=== PATIENT | male | born 1985 | race Caucasian/White ===

== ENCOUNTER 2021-01-22 21:58 | Emergency (ER) | payer SELFPAY ==
[2021-01-22] MEDS ORDERED: Ondansetron 4 MG/2 ML SDV IVPUSH ONE (22:50)
[2021-01-22] MEDS ORDERED: Dextrose 5%-0.9% NaCl 1,000 ML IV SCH (23:15)
[2021-01-22 23:30] LABS: BLOOD UREA NITROGEN,BUN 26 mg/dL (7.0-18.0); CARBON DIOXIDE,CO2 26.4 mmol/L (21.0-32.0); CHLORIDE,CL 99 mmol/L (98-107); GLUCOSE RANDOM 113 mg/dL (74-106); POTASSIUM,K 4.4 mmol/L (3.5-5.1); SODIUM,NA 136 mmol/L (136-148)
[2021-01-22 23:46] LABS: CORONAVIRUS COVID-19 NAA NEGATIVE (NEGATIVE); INFLUENZA A NAA NEGATIVE (NEGATIVE); INFLUENZA B NAA NEGATIVE (NEGATIVE)
--- NOTE | 2021-01-23 00:22 | EDM.PDOC ---
ED HPI GENERAL MEDICAL PROBLEM - General Chief Complaint: Gastrointestinal Problem Stated Complaint: VOMITING, DIARREA Time Seen by Provider: 01/22/21 22:16 - History of Present Illness INITIAL COMMENTS - FREE TEXT/NARRATIVE: CHIEF COMPLAINT(S): Vomiting HISTORY OF PRESENT ILLNESS: This is a 35 year old man without a PMH presenting to the ED with vomiting. The patient states that he has been experiencing non blood non bilious vomiting for the last day. He has some also associated diarrhea which is non bloody. He states that he is having some associated cold and hot flashes and bodyaches. The patient states that he is experiencing lower abdomen pain that began 1 days ago. He states the pain is located in the lower abdomen but is all over his abdomen at times and describes the pain as sharp. He states that there is no radiation and is constant 8/10. He states that the pain is not relieved by anything and the pain is exacerbated by bowel movements and vomiting. he states that his girlfriend is having similar symptoms. He denies any chest pain, shortness of breath, headache, loss of taste or vision. REVIEW OF SYSTEMS: Constitutional: Positive for hot/cold flashes body aches Eyes: Denies eye pain Ears, Nose, Mouth, & Throat: Denies earache Cardiovascular: Denies chest pain Respiratory: Denies shortness of breath Gastrointestinal: Positive for abdominal pain, nausea, vomiting, and diarrhea. Denies hematemesis, bilious emesis, hematochezia, or melena. Genitourinary: Denies hematuria, dysuria Skin:Denies a rash MSK: Denies joint pain Neurological: Denies blurred vision Psychiatric: Denies depression PAST MEDICAL HISTORY: As per history of present illness and as reviewed below otherwise noncontributory. SURGICAL HISTORY: As per history of present illness and as reviewed below otherw ise noncontributory. SOCIAL HISTORY: As per history of present illness and as reviewed below otherwise noncontributory. FAMILY HISTORY: As per history of present illness and as reviewed below otherw ise noncontributory. EXAMINATION OF ORGAN SYSTEMS/BODY AREAS: Constitutional: BP 129/74, HR 111, RR 18 with an oxygen saturation of 94% on RA. T 37.9 General: Well appearing man in NAD Psychiatric: Appropriate mood and affect. Eyes: No scleral icterus or conjunctival erythema ENMT: Pasty mucous membranes. No pharyngeal erythema Cardiovascular: Regular, rate, and rhythm. No gallops, murmurs, or rubs. Bilateral upper extremity pulses symmetric and intact. No peripheral edema. No JVD. Respiratory: Lungs clear to auscultation bilaterally. No wheezes, rales, or rhonchi. Gastrointestinal: Soft, tenderness throughout abdomen but worse in lower quadrats, non-distended. Normoactive bowel sounds Genitourinary: Tenderness to suprapubic palpation. No CVA tenderness Musculoskeletal: Normal range of motion. Skin: No lesions or abrasions. Neurological: Alert, GCS 15 MEDICAL DECISION MAKING AND COURSE IN THE ED WITH INTERPRETATION/REVIEW OF DIAGNOSTIC STUDIES: This is a 25 year old man without any PMH who presents with nonspecific abdominal pain associated with nausea, vomiting, and diarrhea. The patient has some tachycardia and borderline hypoxia. These symptoms are not consistent with covid however will obtain COVID swab. At this time the patient has no antibiotic use therefore C dif is not a consideration. Given that his girfriend has similar symptoms this is likely gastroenteritis. We obtain labs to evaluate for electrolyte abnormalities. Will give patient 1L D5 LR bolus and zofran and reevaluate for PO toleration. Laboratory: CBC reveals a leukocytosis of 12.46 with neutrophilic predominance without any left shift. CMP reveals elevated BUN at 26, hyperglycemia at 113 otherwise unremarkable. Covid and influenza are negative. On reevaluation the patient was always able to tolerate p.o. At this time I did discuss with him that I do believe this is secondary to viral gastroenteritis. He is to continue with p.o. hydration. I encouraged the patient to use Zofran as needed for nausea in order to tolerate p.o. He is to return for any new or worsening symptoms. He was amenable to discharge at this time and had no further questions. DISPOSITION: The patient was discharged home in stable condition. The patient will follow up with primary care physician within 1 week CONDITION: Fair PROCEDURES: None FINAL IMPRESSION(S)/DIAGNOSES: 1. Acute vomiting and diarrhea likely secondary to gastroenteritis Emiliano Banks M.D.. Generalized Pain Score (Numeric/FACES): 8 - Related Data Allergies Allergy/AdvReac Type Severity Reaction Status Date / Time amoxicillin Allergy Diarrhea Verified 01/22/21 22:46 Home Meds: Home Meds Ondansetron [Zofran ODT] 4 mg PO Q6H PRN #10 tab.dis 01/23/21 [Rx] Past Medical History Other Respiratory History: collapsed lung with chest tube Other Musculoskeletal History: broken L femur and ankle - Infectious Disease History Infectious Disease History: Reports: Chicken Pox Social & Family History - Family History Family Medical History: No Pertinent Family History - Caffeine Use Caffeine Use: Reports: Coffee, Energy Drinks, Soda, Tea - Recreational Drug Use Recreational Drug Use: No ED ROS GENERAL - Review of Systems Review Of Systems: See Below ED EXAM, GENERAL - Physical Exam Exam: See Below Course - Vital Signs Last Recorded V/S: Last Vital Signs Temp 36.8 C 01/23/21 00:43 Pulse 93 01/23/21 00:43 Resp 18 01/23/21 00:43 BP 119/58 L 01/23/21 00:43 Pulse Ox 94 L 01/23/21 00:43 - Orders/Labs/Meds Labs: Laboratory Tests 01/22/21 01/22/21 01/22/21 Range/Units 22:57 22:57 22:58 WBC 12.46 H (4.0-11.0) K/uL RBC 5.35 (4.50-5.90) M/uL Hgb 16.2 (13.0-17.0) g/dL Hct 46.7 (38.0-50.0) % MCV 87.3 (80.0-98.0) fL MCH 30.3 (27.0-32.0) pg MCHC 34.7 (31.0-37.0) g/dL RDW Std Deviation 41.8 (28.0-62.0) fl RDW Coeff of Sarah 13 (11.0-15.0) % Plt Count 251 (150-400) K/uL MPV 10.30 (7.40-12.00) fL Neut % (Auto) 90.0 H (48.0-80.0) % Lymph % (Auto) 4.2 L (16.0-40.0) % Kleberg % (Auto) 5.0 (0.0-15.0) % Eos % (Auto) 0.6 (0.0-7.0) % Baso % (Auto) 0.2 (0.0-1.5) % Neut # (Auto) 11.2 H (1.4-5.7) K/uL Lymph # (Auto) 0.5 L (0.6-2.4) K/uL Kleberg # (Auto) 0.6 (0.0-0.8) K/uL Eos # (Auto) 0.1 (0.0-0.7) K/uL Baso # (Auto) 0.0 (0.0-0.1) K/uL Nucleated RBC % 0.0 /100WBC Nucleated RBCs # 0 K/uL Sodium 136 (136-148) mmol/L Potassium 4.4 (3.5-5.1) mmol/L Chloride 99 (98-107) mmol/L Carbon Dioxide 26.4 (21.0-32.0) mmol/L BUN 26 H (7.0-18.0) mg/dL Creatinine 1.2 (0.8-1.3) mg/dL Est Cr Clr Drug Dosing 87.03 mL/min Estimated GFR (MDRD) > 60.0 ml/min Glucose 113 H (74-106) mg/dL POC Glucose 114 H (60-110) mg/dL Calcium 9.4 (8.5-10.1) mg/dL Total Bilirubin 0.7 (0.2-1.0) mg/dL AST 27 (15-37) IU/L ALT 62 (14-63) IU/L Alkaline Phosphatase 61 (46-116) U/L Total Protein 8.5 H (6.4-8.2) g/dL Albumin 4.7 (3.4-5.0) g/dL Globulin 3.8 (2.6-4.0) g/dL Albumin/Globulin Ratio 1.2 (0.9-1.6) Influenza Type A RNA (NEGATIVE) Influenza Type B RNA (NEGATIVE) SARS-CoV-2 RNA (CRISTOBAL) (NEGATIVE) 01/22/21 Range/Units 23:01 WBC (4.0-11.0) K/uL RBC (4.50-5.90) M/uL Hgb (13.0-17.0) g/dL Hct (38.0-50.0) % MCV (80.0-98.0) fL MCH (27.0-32.0) pg MCHC (31.0-37.0) g/dL RDW Std Deviation (28.0-62.0) fl RDW Coeff of Sarah (11.0-15.0) % Plt Count (150-400) K/uL MPV (7.40-12.00) fL Neut % (Auto) (48.0-80.0) % Lymph % (Auto) (16.0-40.0) % Kleberg % (Auto) (0.0-15.0) % Eos % (Auto) (0.0-7.0) % Baso % (Auto) (0.0-1.5) % Neut # (Auto) (1.4-5.7) K/uL Lymph # (Auto) (0.6-2.4) K/uL Kleberg # (Auto) (0.0-0.8) K/uL Eos # (Auto) (0.0-0.7) K/uL Baso # (Auto) (0.0-0.1) K/uL Nucleated RBC % /100WBC Nucleated RBCs # K/uL Sodium (136-148) mmol/L Potassium (3.5-5.1) mmol/L Chloride (98-107) mmol/L Carbon Dioxide (21.0-32.0) mmol/L BUN (7.0-18.0) mg/dL Creatinine (0.8-1.3) mg/dL Est Cr Clr Drug Dosing mL/min Estimated GFR (MDRD) ml/min Glucose (74-106) mg/dL POC Glucose (60-110) mg/dL Calcium (8.5-10.1) mg/dL Total Bilirubin (0.2-1.0) mg/dL AST (15-37) IU/L ALT (14-63) IU/L Alkaline Phosphatase (46-116) U/L Total Protein (6.4-8.2) g/dL Albumin (3.4-5.0) g/dL Globulin (2.6-4.0) g/dL Albumin/Globulin Ratio (0.9-1.6) Influenza Type A RNA NEGATIVE (NEGATIVE) Influenza Type B RNA NEGATIVE (NEGATIVE) SARS-CoV-2 RNA (CRISTOBAL) NEGATIVE (NEGATIVE) Meds: Medications Discontinued Medications Generic Name Dose Route Start Last Admin Trade Name Freq PRN Reason Stop Dose Admin Dextrose/Sodium Chloride 1,000 mls @ 999 mls/hr 01/22/21 23:15 01/22/21 23:23 Dextrose 5%-Normal Saline IV 999 mls/hr ASDIRECTED MARSHALL Administration Ondansetron HCl 4 mg 01/22/21 22:50 01/22/21 23:00 Ondansetron 4 Mg/2 Ml Sdv IVPUSH 01/22/21 22:51 4 mg ONETIME ONE Administration Ondansetron HCl 4 mg 01/23/21 00:23 01/23/21 00:40 Ondansetron 4 Mg Tab.Dis PO 01/23/21 00:24 4 mg ONETIME ONE Administration Ondansetron HCl 4 mg 01/23/21 00:24 01/23/21 00:40 Ondansetron 4 Mg Tab.Dis PO 01/23/21 00:25 4 mg ONETIME ONE Administration Departure - Departure Time of Disposition: 00:22 Disposition: Home, Self-Care 01 Condition: Fair Clinical Impression: Gastroenteritis - Discharge Information *PRESCRIPTION DRUG MONITORING PROGRAM REVIEWED*: No *COPY OF PRESCRIPTION DRUG MONITORING REPORT IN PATIENT MELINA: No Prescriptions: Ondansetron [Zofran ODT] 4 mg PO Q6H PRN #10 tab.dis PRN Reason: Nausea/Vomiting Instructions: Viral Gastroenteritis, Adult, [id number] Referrals: PCP,None [Primary Care Provider] - Forms: ED Department Discharge Additional Instructions: Your eval today on an emergent basis. At this time I do believe your symptoms are secondary to a viral gastroenteritis. Your laboratory analysis was normal. I do recommend using Zofran as needed for nausea. As discussed please use a bland diet including fluids like soups and use Gatorade and Pedialyte and water to keep hydrated. If you have any worsening of your symptoms or inability to eat or drink please return to the emergency department. Please follow-up with your primary care physician within 2 to 3 days. [facility] - [facility] [address] [place] [id number] [facility] [address] [place] [address] The patient is informed of any results of their evaluation and diagnostic workup and all questions are answered. They are given discharge instructions and return precautions. The patient is stable for discharge. The patient states they understand and agree with the plan and that they will return if their symptoms get worse or if they have any new concerns. The following information is given to patients seen in the emergency department who are being discharged to home. This information is to outline your options for follow-up care. We provide all patients seen in our emergency department with a follow-up referral. The need for follow-up, as well as the timing and circumstances, are variable depending upon the specifics of your emergency department visit. If you don't have a primary care physician on staff, we will provide you with a referral. We always advise you to contact your personal physician following an emergency department visit to inform them of the circumstance of the visit and for follow-up with them and/or the need for any referrals to a consulting specialist. The emergency department will also refer you to a specialist when appropriate. This referral assures that you have the opportunity for follow-up care with a specialist. All of these measure are taken in an effort to provide you with optimal care, which includes your follow-up. Under all circumstances we always encourage you to contact your private physician who remains a resource for coordinating your care. When calling for follow-up care, please make the office aware that this follow-up is from your recent emergency room visit. If for any reason you are refused follow-up, please contact the [facility] Emergency Department at and asked to speak to the emergency department charge nurse. Sepsis Event Note (ED) - Evaluation Sepsis Screening Result: No Definite Risk
[2021-01-23] MEDS ORDERED: Ondansetron 4 MG Tab.DIS PO ONE ×2 (00:23→00:24)
== END 2021-01-23 00:43 | disposition home or self-care (01) ==
LOC: MW.ED 21:58
DX: R11.2 Nausea with vomiting, unspecified (principal); R19.7 Diarrhea, unspecified; Z20.822 Contact with and (suspected) exposure to COVID-19; Z88.0 Allergy status to penicillin
CPT/HCPCS: 0240U; 36415; 80053; 82962; 85025; 96374; 99284; A9270; J2405; J7042; 99283

== ENCOUNTER 2021-08-18 20:00 | Emergency (ER) | payer BC ==
--- NOTE | 2021-08-18 20:36 | EDM.PDOC ---
ED HPI GENERAL MEDICAL PROBLEM - General Chief Complaint: Abdominal Pain Stated Complaint: TORSO/ABDOMEN INJURY Time Seen by Provider: 08/18/21 20:25 Source of Information: Reports: Patient History Limitations: Reports: No Limitations - History of Present Illness INITIAL COMMENTS - FREE TEXT/NARRATIVE: HISTORY AND PHYSICAL: History of present illness: Patient is a 36-year-old male who presents to the emergency room with complaints of right lower rib pain. He states about 4 days ago he had fallen onto a piece of equipment hitting the right lower chest wall. He states it was painful although felt "okay" over the first 2 days. Yesterday he moved wrong and had sudden sharp pain to the right lower chest wall. He believes he may have fractured a rib. He does have early bruising noted to the right lower rib area with tenderness to palpation. Patient denies any fever, chills, headache, change in vision, syncope or near syncope. Denies any back pain, shortness of breath or cough. Denies any abdominal pain, nausea, vomiting, diarrhea, constipation or dysuria. Has not noted any blood in urine or stool. Patient has been eating and drinking appropriately. No recent travel or sick contacts. Review of systems: As per history of present illness and below otherwise all systems reviewed and negative. Past medical history: As per history of present illness and as reviewed below otherwise noncontributory. Surgical history: As per history of present illness and as reviewed below otherwise noncontributory. Social history: See social history for further information Family history: As per history of present illness and as reviewed below otherwise noncontributory. Physical exam: General: Well developed and well nourished. Alert and orientated x 3. Nontoxic in appearance and in no acute distress. Vital signs are stable and have been reviewed by me. Nursing notes were reviewed. HEENT: Atraumatic, normocephalic, pupils equal and reactive bilaterally, negati ve for conjunctival pallor or scleral icterus, mucous membranes moist, TMs normal bilaterally, throat clear, neck supple, nontender, trachea midline. No drooling or trismus noted. No meningeal signs. No hot potato voice noted. Lungs: Clear to auscultation bilaterally. No wheezes, rales, or rhonchi. Tenderness to right lower anterior rib with bruising and mild soft tissue swelling noted. Normal work of breathing, no accessory muscles used. Heart: S1S2, regular rate and rhythm without overt murmur, gallops, or rubs. No JVD. No peripheral edema Abdomen: Soft, nondistended, nontender. Normoactive bowel sounds. Negative for masses or costovertebral tenderness. C-spine/Back: No pinpoint vertebral tenderness upon palpation. No crepitus, step-offs or obvious deformities. Patient is ambulatory into the emergency room without difficulty or deficit. Able to rock back on heels and walk on toes. Denies any urinary or fecal incontinence. Denies any numbness, tingling or saddle paresthesia. No concerns of serious infection, fracture or cord compression, or cauda equina syndrome. Deep tendon reflexes brisk bilaterally. Skin: Bruising to right anterior/lateral chest wall. Remaining skin is intact, warm, dry. No lesions or rashes noted. Hematologic: No petechiae or purpra. Mucosa appropriate color and normal nail bed color and refill. Extremities: Atraumatic, moves all extremities per self without difficulty or deficits, negative for cords or calf pain. Neurovascular unremarkable. Neuro: Awake, alert, oriented. Cranial nerves II through XII unremarkable. Cerebellum unremarkable. Motor and sensory unremarkable throughout. Exam nonfocal. Psychiatric: Mood and affect are appropriate. Normal thought process. Answering questions appropriately. Please note that the patient was seen and evaluated during the 2019 SARS-CoV-2 novel coronavirus pandemic period. Community viral transmission is ongoing at time of this encounter and the emergency department is operating under pandemic response procedures. Medical Decision Making: Patient is a 36-year-old male who presents to the emergency room with complaints of right lower rib pain. Initially he thought it was his abdomen but upon ins pecting he does not have any abdominal tenderness he does have rib tenderness, will do a chest x-ray with right rib detail. Chest x-ray shows no acute fracture. Lungs are clear. No pleural effusion or pneumothorax. I have talked with the patient about today's findings, in addition to providing specific details for plan of care. Reassessment at the time of disposition demonstrates that the patient is in no acute distress. The patient is stable for discharge, counseling was provided and we discussed in great detail signs and symptoms that would prompt them to return to the Emergency Department. Medication, follow up and supportive care measures were reviewed and discussed. Voices understanding and is agreeable to plan of care. Denies any further questions or concerns at this time. Diagnostics: Right rib detail Therapeutics: Gum Spring Prescription: Gum Spring (#15) Impression: Rib injury Plan: 1. You were evaluated today on an emergent basis. Your x-ray shows no fracture. Rest, ice and use the incentive spirometer every 2-4 hours while you are awake. Please do not avoid taking deep breaths or coughing, this could result in pneumonia. 2. You can alternate Tylenol and ibuprofen as needed for pain and fever management. Gum Spring as needed for moderate to severe pain. This medication may cause drowsiness so do not take it while driving or needing to be functioning outside of the house. 3. We encourage you to follow up with your primary care provider and/or recommended specialist in the next few days for re-evaluation and further care/management. 4. If your symptoms should worsen, new symptoms develop or any of the signs and symptoms we discussed should arise please return to the emergency room or call 911 (if needed). Definitive disposition and diagnosis as appropriate pending reevaluation and review of above. Right Middle Abdomen Pain Score (Numeric/FACES): 8 - Related Data Allergies Allergy/AdvReac Type Severity Reaction Status Date / Time amoxicillin Allergy Diarrhea Verified 08/18/21 20:35 Home Meds: Home Meds Hydrocodone/Acetaminophen [HYDROcodone-Acetaminophen 5-325 MG] 1 - 2 tab PO Q4HR PRN #15 tablet 08/18/21 [Rx] Past Medical History Other Respiratory History: collapsed lung with chest tube Other Musculoskeletal History: broken L femur and ankle - Infectious Disease History Infectious Disease History: Reports: Chicken Pox Social & Family History - Family History Family Medical History: No Pertinent Family History - Caffeine Use Caffeine Use: Reports: Coffee, Energy Drinks, Soda, Tea ED ROS GENERAL - Review of Systems Review Of Systems: Comprehensive ROS is negative, except as noted in HPI. ED EXAM, GI/ABD - Physical Exam Exam: See Below (See dictation) Course - Vital Signs Last Recorded V/S: Last Vital Signs Temp 97.3 F 08/18/21 20:28 Pulse 84 08/18/21 20:28 Resp 18 08/18/21 20:28 BP 131/46 L 08/18/21 20:28 Pulse Ox 98 08/18/21 20:28 - Orders/Labs/Meds Orders: Active Orders 24 hr Category Date Time Status Incentive Spirometry [RT Incentive Spirometry] [RC] Care 08/18/21 21:27 Ordered ASDIRECTED Ribs 2V w Chest Rt [CR] Stat Exams 08/18/21 20:36 Taken Meds: Medications Discontinued Medications Generic Name Dose Route Start Last Admin Trade Name Freq PRN Reason Stop Dose Admin Hydrocodone Bitart/Acetaminophen 1 tab 08/18/21 21:27 Acetaminophen/Hydrocodone 325-5 Mg Tab PO 08/18/21 21:28 ONETIME ONE Departure - Departure Time of Disposition: 21:33 Disposition: Home, Self-Care 01 Clinical Impression: Contusion of rib on right side Qualifiers: Encounter type: initial encounter Qualified Code(s): S20.211A - Contusion of right front wall of thorax, initial encounter - Discharge Information Prescriptions: Hydrocodone/Acetaminophen [HYDROcodone-Acetaminophen 5-325 MG] 1 - 2 tab PO Q4HR PRN #15 tablet PRN Reason: Pain (Moderate 4-6) Instructions: Rib Contusion Referrals: PCP,None [Primary Care Provider] - Forms: ED Department Discharge Additional Instructions: The following information is given to patients seen in the emergency department who are being discharged to home. This information is to outline your options for follow-up care. We provide all patients seen in our emergency department with a follow-up referral. The need for follow-up, as well as the timing and circumstances, are variable depending upon the specifics of your emergency department visit. If you don't have a primary care physician on staff, we will provide you with a referral. We always advise you to contact your personal physician following an emergency department visit to inform them of the circumstance of the visit and for follow-up with them and/or the need for any referrals to a consulting specialist. The emergency department will also refer you to a specialist when appropriate. This referral assures that you have the opportunity for follow-up care with a s pecialist. All of these measure are taken in an effort to provide you with optimal care, which includes your follow-up. Under all circumstances we always encourage you to contact your private physici an who remains a resource for coordinating your care. When calling for follow-up care, please make the office aware that this follow-up is from your recent emergency room visit. If for any reason you are refused follow-up, please contact the [facility] Emergency Department at and asked to speak to the emergency department charge nurse. [facility] [address] [place] [address] [facility] [address] [place] [address] Thank you for choosing the [facility] emergency department in [place] for your medical needs today. It was a pleasure caring for you. Today you were seen in the emergency department for rib pain Your prescription was electronically sent to: [place] pharmacy 1. You were evaluated today on an emergent basis. Your x-ray shows no fracture. Rest, ice and use the incentive spirometer every 2-4 hours while you are awake. Please do not avoid taking deep breaths or coughing, this could result in pneumonia. 2. You can alternate Tylenol and ibuprofen as needed for pain and fever management. Gum Spring as needed for moderate to severe pain. This medication may cause drowsiness so do not take it while driving or needing to be functioning outside of the house. 3. We encourage you to follow up with your primary care provider and/or recommended specialist in the next few days for re-evaluation and further care/management. 4. If your symptoms should worsen, new symptoms develop or any of the signs and symptoms we discussed should arise please return to the emergency room or call 911 (if needed). Sepsis Event Note (ED) - Focused Exam Vital Signs: Vital Signs Temp Pulse Resp BP Pulse Ox 08/18/21 20:28 97.3 F 84 18 131/46 L 98 - My Orders Last 24 Hours: My Active Orders 08/18/21 20:36 Ribs 2V w Chest Rt [CR] Stat 08/18/21 21:27 Incentive Spirometry [RT Incentive Spirometry] [RC] ASDIRECTED - Assessment/Plan Last 24 Hours: My Active Orders 08/18/21 20:36 Ribs 2V w Chest Rt [CR] Stat 08/18/21 21:27 Incentive Spirometry [RT Incentive Spirometry] [RC] ASDIRECTED
[2021-08-18] MEDS ORDERED: Acetaminophen/HYDROcodone 325-5 MG Tab PO ONE (21:27)
--- NOTE | 2021-08-18 21:32 | CR ---
INDICATION: Fall, hit lower right rib area TECHNIQUE: PA view of the chest and 2 views of the right ribs COMPARISON: None FINDINGS: There is no evidence of acute displaced right rib fracture. There is no pleural effusion or pneumothorax. The lungs are clear. The cardiomediastinal silhouette is normal. IMPRESSION: No acute abnormality. Dictated by Aguila Ray MD @ 08/18/2021 9:30:32 PM (Electronically Signed)
== END 2021-08-18 21:36 | disposition home or self-care (01) ==
LOC: MW.ED 20:00
DX: S20.211A Contusion of right front wall of thorax, initial encounter (principal); Z88.0 Allergy status to penicillin; W22.09XA Striking against other stationary object, initial encounter
CPT/HCPCS: 71101-26-RT; 71101-RT; 99283-25

== ENCOUNTER 2021-09-15 08:16 | Emergency (ER) | payer BC ==
--- NOTE | 2021-09-15 08:34 | EDM.PDOC ---
ED HPI GENERAL MEDICAL PROBLEM - General Chief Complaint: Back Pain or Injury Stated Complaint: LOWER BACK PAIN Time Seen by Provider: 09/15/21 08:22 Source of Information: Reports: Patient History Limitations: Reports: No Limitations - History of Present Illness INITIAL COMMENTS - FREE TEXT/NARRATIVE: 36-year-old male no past medical history presents for low back pain. Patient does note that a couple weeks ago he fell off the back of a truck and landed on his lower back. He did have some pain but did not seek medical attention. Things seem to get better. Few days ago he twisted his back when walking up some stairs. He has noted continued pain ever since. Pain is primarily in the left lower back without radiation. Denies urinary incontinence or retention. Denies saddle anesthesia. Bilateral Lower Back Pain Score (Numeric/FACES): 8 - Related Data Allergies Allergy/AdvReac Type Severity Reaction Status Date / Time amoxicillin Allergy Diarrhea Verified 09/15/21 08:33 Home Meds: Home Meds Cyclobenzaprine [Flexeril] 10 mg PO TID PRN #20 tab 09/15/21 [Rx] Ibuprofen [Motrin] 600 mg PO Q6H PRN #20 tab 09/15/21 [Rx] Past Medical History - Past Health History Medical/Surgical History: Denies Medical/Surgical History Other Respiratory History: collapsed lung with chest tube Other Musculoskeletal History: broken L femur and ankle - Infectious Disease History Infectious Disease History: Reports: Chicken Pox Social & Family History - Family History Family Medical History: No Pertinent Family History - Caffeine Use Caffeine Use: Reports: Coffee, Energy Drinks, Soda, Tea ED ROS GENERAL - Review of Systems Review Of Systems: Comprehensive ROS is negative, except as noted in HPI. ED EXAM, GENERAL - Physical Exam Exam: See Below Exam Limited By: No Limitations General Appearance: Alert, WD/WN, No Apparent Distress Ears: Hearing Grossly Normal Throat/Mouth: Normal Voice, No Airway Compromise Head: Atraumatic, Normocephalic Respiratory/Chest: No Respiratory Distress, No Accessory Muscle Use Cardiovascular: Normal Peripheral Pulses Back Exam: Normal Inspection, Full Range of Motion, Paraspinal Tenderness (left lumbar). No: Vertebral Tenderness Extremities: Normal Inspection Neurological: Alert, Normal Cognition, Normal Gait Psychiatric: Normal Affect, Normal Mood Skin Exam: Warm, Dry, Intact, Normal Color Course - Vital Signs Last Recorded V/S: Last Vital Signs Temp 97.7 F 09/15/21 08:34 Pulse 87 09/15/21 08:34 Resp 18 09/15/21 08:34 BP 121/41 L 09/15/21 08:34 Pulse Ox 98 09/15/21 08:34 - Orders/Labs/Meds Meds: Medications Discontinued Medications Generic Name Dose Route Start Last Admin Trade Name Freq PRN Reason Stop Dose Admin Cyclobenzaprine HCl 10 mg 09/15/21 08:48 09/15/21 08:55 Cyclobenzaprine 10 Mg Tab PO 09/15/21 08:49 10 mg ONETIME ONE Administration Dexamethasone 10 mg 09/15/21 08:48 09/15/21 08:55 Dexamethasone 10 Mg/Ml Sdv IM 09/15/21 08:49 10 mg STAT STA Administration Ibuprofen 600 mg 09/15/21 08:48 09/15/21 08:55 Ibuprofen 600 Mg Tab PO 09/15/21 08:49 600 mg ONETIME ONE Administration Oxycodone/Acetaminophen 1 tab 09/15/21 08:48 09/15/21 08:54 Acetaminophen/Oxycodone 325-5 Mg Tab PO 09/15/21 08:49 1 tab ONETIME ONE Administration - Re-Assessments/Exams Free Text/Narrative Re-Assessment/Exam: 09/15/21 08:[address] L-spine to r/o compression fracture or bony injury. Spoke with patient about MRI being the most sensitive test for LBP but unavailable from ER. Will treat symptomatically with motrin/percocet/decadron/flexeril. 09/15/21 09:43 CT imaging is unremarkable; will d/c with motrin and flexeril for pain. Departure - Departure Time of Disposition: 09:44 Disposition: Home, Self-Care 01 Condition: Good Clinical Impression: Low back pain Qualifiers: Chronicity: acute Back pain laterality: left Sciatica presence: without sciatica Qualified Code(s): M54.50 - Low back pain, unspecified - Discharge Information Prescriptions: Cyclobenzaprine [Flexeril] 10 mg PO TID PRN #20 tab PRN Reason: Muscle Spasm - Painful Ibuprofen [Motrin] 600 mg PO Q6H PRN #20 tab PRN Reason: Pain Instructions: Acute Back Pain, Adult Referrals: PCP,None [Primary Care Provider] - Forms: ED Department Discharge Additional Instructions: I have sent pain medication and muscle relaxant to [place] pharmacy. You can use this for the next few days to help with your symptoms. You should consider following up with a primary care physician for MRI imaging of the back if your symptoms persist or worsen. Information is provided below if you do not have a primary care physician. If you experience worsening pain, leg muscle weakness, inability to urinate, urinating on yourself, or numbness around your groin and anus, these can be signs of spinal cord impingement and you should come back to the ER for reassessment. The following information is given to patients seen in the emergency department who are being discharged to home. This information is to outline your options for follow-up care. We provide all patients seen in our emergency department with a follow-up referral. The need for follow-up, as well as the timing and circumstances, are variable depending upon the specifics of your emergency department visit. If you don't have a primary care physician on staff, we will provide you with a referral. We always advise you to contact your personal physician following an emergency department visit to inform them of the circumstance of the visit and for follow-up with them and/or the need for any referrals to a consulting specialist. The emergency department will also refer you to a specialist when appropriate. This referral assures that you have the opportunity for follow-up care with a specialist. All of these measure are taken in an effort to provide you with optimal care, which includes your follow-up. Under all circumstances we always encourage you to contact your private physician who remains a resource for coordinating your care. When calling for follow-up care, please make the office aware that this follow-up is from your recent emergency room visit. If for any reason you are refused follow-up, please contact the [facility] Emergency Department at and asked to speak to the emergency department charge nurse. Please follow up with your primary care physician. If you do not have a primary care physician, see below: [facility] [address] [place] [id number] [facility] [address] [place] [id number] [facility] [address] [place] [id number] Sepsis Event Note (ED) - Focused Exam Vital Signs: Vital Signs Temp Pulse Resp BP Pulse Ox 09/15/21 08:34 97.7 F 87 18 121/41 L 98
[2021-09-15] MEDS ORDERED: Cyclobenzaprine 10 MG Tab PO ONE (08:48)
[2021-09-15] MEDS ORDERED: Acetaminophen/oxyCODONE 325-5 MG Tab PO ONE (08:48)
[2021-09-15] MEDS ORDERED: Dexamethasone 10 MG/ML SDV IM STA (08:48)
[2021-09-15] MEDS ORDERED: Ibuprofen 600 MG Tab PO ONE (08:48)
--- NOTE | 2021-09-15 09:41 | CT ---
INDICATION: Low back pain. Fell a few weeks ago. TECHNIQUE: Noncontrast CT images acquired through the lumbar spine. COMPARISON: None. FINDINGS The lumbar lordosis is preserved. Vertebral heights maintained. No acute fracture. T12-L1 and L1-2: No spinal canal or neural foraminal narrowing. L2-3: Mild retrolisthesis. Moderate disc height loss. Shallow posterior disc bulge. Mild spinal canal narrowing. No neural foraminal narrowing. L3-4: No spinal canal or neural foraminal narrowing. L4-5: Mild bilateral facet arthropathy. Posterior disc bulging and endplate spondylitic ridging eccentric to the right. No spinal canal narrowing. Low-grade right without left neural foraminal narrowing. L5-S1: Disc height loss. Left eccentric disc bulging and endplate spondylitic ridging. Mild bilateral facet arthropathy. No spinal canal narrowing. Moderate left and [id number] right neural foraminal narrowing. IMPRESSION: 1. No acute fracture. 2. At L5-S1, moderate left and [id number] right neural foraminal narrowing. Please note that all CT scans at this facility use dose modulation, iterative reconstruction, and/or weight-based dosing when appropriate to reduce radiation dose to as low as reasonably achievable. Dictated by Franklin Hebert MD @ 09/15/2021 9:39:11 AM (Electronically Signed)
== END 2021-09-15 09:58 | disposition home or self-care (01) ==
LOC: MW.ED 08:16
DX: M54.50 Low back pain, unspecified (principal); Z88.0 Allergy status to penicillin
CPT/HCPCS: 72131; 96372; 99283; A9270; J1100

== ENCOUNTER 2022-02-02 15:15 | Emergency (ER) | payer SELFPAY | END 2022-02-02 16:30 | disposition home or self-care (01) | LOC: MW.ED 15:15 | DX: Z00.8 Encounter for other general examination (principal); Z88.0 Allergy status to penicillin | CPT/HCPCS: 99283 ==

== ENCOUNTER 2023-07-24 03:18 | Emergency (ER) | payer OTHER ==
[2023-07-24] MEDS ORDERED: Amoxicillin/Clavulanate K 875-125 MG Tab PO ONE (03:33)
[2023-07-24] MEDS ORDERED: Acetaminophen 325 MG Tab PO ONE (03:33)
[2023-07-24] MEDS ORDERED: Ibuprofen 600 MG Tab PO ONE (03:33)
[2023-07-24] MEDS ORDERED: Amoxicillin 500 MG Cap PO ONE (03:37)
== END 2023-07-24 04:35 | disposition home or self-care (01) ==
LOC: MW.ED 03:18
DX: K08.89 Other specified disorders of teeth and supporting structures (principal)
CPT/HCPCS: 99282; A9270; 99283

== ENCOUNTER 2025-03-17 09:30 | Emergency (ER) | payer OTHER ==
[2025-03-17] MEDS ORDERED: Sodium Chloride 0.9% 10 ML Syringe FLUSH PRN (10:19)
[2025-03-17] MEDS ORDERED: Sodium Chloride 0.9% 20 ML SDV IV PRN (10:19)
[2025-03-17] MEDS ORDERED: Sodium Chloride 0.9% 2.5 ML Syringe FLUSH PRN (10:19)
[2025-03-17 10:26] LABS: BASOPHILS ABSOLUTE AUTO 0.12 K/uL (0.00-0.20); EOSINOPHILS ABSOLUTE AUTO 0.07 K/uL (0.00-0.45); EOSINOPHILS PERCENT AUTO 0.6 % (0.0-6.0); HEMATOCRIT 43.8 % (42.0-52.0); HEMOGLOBIN 15.3 g/dL (14.0-18.0); IMMATURE GRAN ABSOLUTE AUTO 0.04 K/uL (0.00-0.05); IMMATURE GRAN PERCENT AUTO 0.3 % (0.0-0.4); LYMPHOCYTES ABSOLUTE AUTO 2.06 K/uL (1.00-4.80); LYMPHOCYTES PERCENT AUTO 16.9 % (24.0-44.0); MEAN CORPUSCULAR HEMOGLOBIN 29.2 pg (28.0-32.0); MEAN CORPUSCULAR HGB CONC 34.9 g/dL (32.0-36.0); MEAN CORPUSCULAR VOLUME 83.6 fL (83.0-99.0); MEAN PLATELET VOLUME 10.4 fL (9.4-12.4); MONOCYTES ABSOLUTE AUTO 0.91 K/uL (0.00-0.80); MONOCYTES PERCENT AUTO 7.5 % (0.0-8.0); NEUTROPHILS ABSOLUTE AUTO 8.99 K/uL (1.80-7.70); NEUTROPHILS PERCENT AUTO 73.7 % (41.0-71.0); PLATELET COUNT,PLT 293 K/uL (150-400); RED BLOOD CELL COUNT 5.24 M/uL (4.52-5.90); WHITE BLOOD CELL COUNT,WBC 12.19 K/uL (3.9-11.3)
[2025-03-17 10:35] LABS: A/G RATIO 1.4 (0.9-1.6); ALANINE AMINOTRANSFERASE,ALT 22 IU/L (14-63); ALBUMIN 4.5 g/dL (3.4-5.0); ALKALINE PHOSPHATASE 54 U/L (46-116); ASPARTATE AMNIOTRANSFERASE,AST 26 IU/L (15-37); BLOOD UREA NITROGEN,BUN 19 mg/dL (7.0-18.0); CALCIUM 9.3 mg/dL (8.5-10.1); CARBON DIOXIDE,CO2 28.3 mmol/L (21.0-32.0); CHLORIDE,CL 100 mmol/L (98-107); CREATININE 1.1 mg/dL (0.8-1.3); EST CRCL DRUG DOSING (CG) 94.13 mL/min; GLUCOSE RANDOM 146 mg/dL (74-106); LIPASE <6 U/L (16-77); POTASSIUM,K 3.9 mmol/L (3.5-5.1); PROTEIN TOTAL,TP 7.8 g/dL (6.4-8.2); SODIUM,NA 140 mmol/L (136-148)
[2025-03-17 10:42] LABS: APPEARANCE,URINE CLEAR; BILIRUBIN,URINE NEGATIVE (NEGATIVE); COLOR,URINE YELLOW; GLUCOSE,URINE NEGATIVE (NEGATIVE); KETONES,URINE 15 mg/dL (NEGATIVE); LEUKOCYTE ESTERASE,URINE NEGATIVE (NEGATIVE); NITRITE,URINE NEGATIVE (NEGATIVE); OCCULT BLOOD,URINE SMALL (NEGATIVE); PROTEIN,URINE NEGATIVE (NEGATIVE); UROBILINOGEN,URINE 0.2 EU/dL (<2.0)
[2025-03-17 10:46] LABS: ESTIMATED GFR 86 mL/min (>60)
[2025-03-17] MEDS: Ondansetron 4 MG/2 ML SDV IVPUSH ONE (10:46)
[2025-03-17] MEDS: Sodium Chloride 0.9% 1,000 ML IV SCH (10:46)
[2025-03-17 10:49] LABS: AMPHETAMINES SCREEN, URINE NEGATIVE (CUTOFF=500); BARBITURATE SCREEN,URINE NEGATIVE (CUTOFF=200); BENZODIAZEPINES SCREEN,URINE NEGATIVE (CUTOFF=150); BUPRENORPHINE SCREEN,URINE NEGATIVE (CUTOFF=10); METHADONE SCREEN, URINE NEGATIVE (CUTOFF=200); METHAMPHETAMINES SCREEN, URINE NEGATIVE (CUTOFF=500); OXYCODONE SCREEN,URINE NEGATIVE (CUT0FF=100); PCP SCREEN,URINE NEGATIVE (CUTOFF=25); THC SCREEN,URINE 20 NG/ML PRESUMPTIVE POSITIVE (CUTOFF=50)
[2025-03-17 10:54] LABS: WBC,URINE 0-2 (0-5/HPF)
[2025-03-17 10:59] LABS: BACTERIA,URINE FEW (NEGATIVE); EPITHELIAL CELLS,URINE NOT SEEN (NONE-FEW); MUCUS,URINE MODERATE (NONE-MOD)
== END 2025-03-17 11:47 | disposition home or self-care (01) ==
LOC: MW.ED 09:30
DX: R41.82 Altered mental status, unspecified (principal); K04.7 Periapical abscess without sinus; Z79.899 Other long term (current) drug therapy
CPT/HCPCS: 36415; 70450; 71045; 80053; 80305; 81001; 82375; 83690; 85025; 87651; 96361; 96374; 99285; J2405; J7030; 99283